=== PATIENT | male | born 1950 | race Caucasian/White ===

== ENCOUNTER 2019-02-22 05:33 | Day surgery (SDC) | payer MEDICARE ==
[2019-02-20 14:23] VITALS: BMI 28.8
[~2019-02-22 05:33] MED LIST: HEPARIN SODIUM,PORCINE 5,000 UNIT/ML 1 ML VIAL SQ ONE; Pre Op ABX Message 1 EACH MISC MISCELLANE ONE
[2019-02-22] MEDS ORDERED: NA PHOS,M-B/NA PHOS,DI-BA 133 ML ENEMA RECTAL ONE (05:49)
[2019-02-22] MEDS ORDERED: HYDROmorphone 0.5 MG/0.5 ML SYRINGE IVP PRN (05:58)
[2019-02-22] MEDS ORDERED: LACTATED RINGERS 1,000 ML IV SCH (05:58)
[2019-02-22] MEDS ORDERED: ONDANSETRON 4 MG/2 ML VIAL IVP ONE (05:58)
[2019-02-22] MEDS ORDERED: DEXAMETHASONE SOD PHOSPHATE 10 MG/ML 1 ML VIAL IV ONE (05:58)
[2019-02-22] MEDS ORDERED: SCOPOLAMINE 1.5MG/72HR PATCH TRANSDERM ONE (05:58)
[2019-02-22] MEDS ORDERED: LIDOCAINE 1% 20 ML VIAL (10MG/ML) FOR IV START INTRADERMA PRN (05:58)
[2019-02-22 06:14] VITALS: TEMP 97.8
[2019-02-22] MEDS ORDERED: LACTATED RINGERS 1,000 ML IV ONE (06:25)
[2019-02-22] MEDS ORDERED: KETAMINE 10 MG/ML 20 ML VIAL ONE (07:38)
[2019-02-22] MEDS ORDERED: KETOROLAC 30 MG/ML 1 ML VIAL ONE (07:38)
[2019-02-22] MEDS ORDERED: PROPOFOL 10 MG/ML 20 ML VIAL IV ONE (07:38)
[2019-02-22] MEDS ORDERED: MIDAZOLAM 2 MG/2 ML VIAL ONE (07:38)
[2019-02-22] MEDS ORDERED: fentaNYL (PF) 50 MCG/ML 2 ML AMP ONE (07:38)
--- NOTE | 2019-02-22 07:53 | P.GSHP ---
History of Present Illness H&P Date: 02/22/19 Chief Complaint: Internal and external hemorrhoids This is a 68-year-old male who's had issues with hemorrhoids. Patient points of anal pain and bleeding. He presents today for hemorrhoidectomy. Past Medical History Past Medical History: Cancer, Prostate Disorder Additional Past Medical History / Comment(s): BASAL CELL CANCER, CATARACT AND GLAUCOMA BILATERAL EYES History of Any Multi-Drug Resistant Organisms: None Reported Past Surgical History: Tonsillectomy Additional Past Surgical History / Comment(s): HEMORROIDECTOMY , COLONOSCOPY, SKIN LESIONS Past Anesthesia/Blood Transfusion Reactions: No Reported Reaction Smoking Status: Never smoker - Past Family History Mother Family Medical History: No Reported History Medications and Allergies Home Medications Medication Instructions Recorded Confirmed Type Doxazosin [Cardura] 2 mg PO HS 02/20/19 02/20/19 History Allergies Allergy/AdvReac Type Severity Reaction Status Date / Time lanolin Allergy Rash/Hives Verified 02/20/19 13:59 Surgical - Exam Vital Signs Temp Pulse Resp BP Pulse Ox 97.8 F 97 18 168/82 98 02/22/19 06:13 02/22/19 06:13 02/22/19 06:13 02/22/19 06:13 02/22/19 06:13 - General well developed, well nourished - Eyes PERRL - ENT normal pinna - Neck no masses - Respiratory normal expansion - Cardiovascular Rhythm: regular - Abdomen Abdomen: soft, non tender - Rectum Internal and external hemorrhoids Hemorrhoids: moderate Assessment and Plan Assessment: Hemorrhoids. We'll perform internal and external hemorrhoidectomy.
[2019-02-22] MEDS ORDERED: BUPIVACAINE (PF) 0.5% 30 ML VIAL SQ ONE (07:59)
[2019-02-22 08:16] VITALS: RESP 16
--- NOTE | 2019-02-22 08:23 | P.OP ---
Date of Procedure: 02/22/19 Preoperative Diagnosis: Internal and external hemorrhoids Postoperative Diagnosis: Internal and external hemorrhoids Procedure(s) Performed: Internal and external hemorrhoidectomy Anesthesia: PEGGY Surgeon: Carlos Chappell Estimated Blood Loss (ml): 5 Pathology: other (Internal and external hemorrhoids) Condition: stable Disposition: PACU Description of Procedure: The patient's placed on the operative table in the prone position. He received IV sedation. His anus was prepped and draped usual sterile fashion. The anus was then injected 1% local Xylocaine. After adequate local anesthetic. The hemorrhoid was performed. The anal retractors placed anus. The left lateral h emorrhoidal column was grasped. Using the Harmonic scissors the rectus performed. Next the right posterior hemorrhoidal column was grasped. This removed with the Harmonic scissors well. Hemostasis was achieved. The anus was packed with Gelfoam. Patient top she will was sent to recovery room stable condition.
[2019-02-22 08:43] VITALS: BP 165/95; PULSE 63
== END 2019-02-22 09:00 | disposition home or self-care (01) ==
LOC: OR 05:33
PROVIDERS: ATTEND Surgery
DX: K64.8 Other hemorrhoids (principal); K64.4 Residual hemorrhoidal skin tags; H40.9 Unspecified glaucoma; Z85.828 Personal history of other malignant neoplasm of skin; Z79.899 Other long term (current) drug therapy; Z88.8 Allergy status to other drugs, medicaments and biological substances
CPT/HCPCS: 88304; 46260; J2250; J1644; J1100; J2405; J3010; J1885; J2704

== ENCOUNTER → 2021-02-11 | Outpatient (CLI) | payer MEDICARE ==
--- NOTE | 2021-02-11 12:01 | ECHOF ---
Referral Reason:R01.1 murmur MEASUREMENTS -------- HEIGHT: 172.7 cm WEIGHT: 88.9 kg BP: RVIDd: 3.9 cm (< 3.3) IVSd: 1.9 cm (0.6 - 1.1) LVIDd: 3.6 cm (3.9 - 5.3) LVPWd: 1.5 cm (0.6 - 1.1) IVSs: 2.4 cm LVIDs: 1.9 cm LVPWs: 2.3 cm LAESV Index (A-L): 26.51 ml/m Ao Diam: 2.9 cm (2.0 - 3.7) AV Cusp: 1.6 cm (1.5 - 2.6) LA Diam: 3.6 cm (2.7 - 3.8) MV EXCURSION: 19.436 mm (> 18.000) MV EF SLOPE: 53 mm/s (70 - 150) EPSS: 0.1 cm MV E Haroldo: 0.61 m/s MV DecT: 232 ms MV A Haroldo: 0.89 m/s MV E/A Ratio: 0.68 AV maxP.88 mmHg AV meanP.07 mmHg RAP: 5.00 mmHg RVSP: 25.72 mmHg FINDINGS -------- Sinus rhythm. This was a technically adequate study. The left ventricular size is normal. There is severe concentric left ventricular hypertrophy. Ove rall left ventricular systolic function is normal with, an EF between 55 - 60 %. The diastolic fill ing pattern is normal for the age of the patient 11.56. The right ventricle is mild to moderately enlarged. Normal LA size by volume 22+/-6 ml/m2. The right atrium is mildly enlarged. Possible PFO The aortic valve is trileaflet and appears structurally normal. There is mild aortic valve sclerosi s. There is no evidence of aortic regurgitation. There is mild aortic stenosis present. Peak/me an gradient across the Aortic Valve is 18.88mmHg / 10.07mmHg. No mitral regurgitation. Mild tricuspid regurgitation present. There is no evidence of pulmonary hypertension. The right v entricular systolic pressure, as measured by Doppler, is 25.72mmHg. Trace/mild (physiologic) pulmonic regurgitation. The aortic root size is normal. IVC Not well visulized. There is no pericardial effusion. CONCLUSIONS -------- 1. The left ventricular size is normal. 2. There is severe concentric left ventricular hypertrophy. 3. Overall left ventricular systolic function is normal with, an EF between 55 - 60 %. 4. The right ventricle is mild to moderately enlarged. 5. The right atrium is mildly enlarged. 6. Possible PFO 7. There is mild aortic valve sclerosis. 8. There is mild aortic stenosis present. 9. Peak/mean gradient across the Aortic Valve is 18.88mmHg / 10.07mmHg. 10. Mild tricuspid regurgitation present. 11. Trace/mild (physiologic) pulmonic regurgitation. ELEMENTARY EDUCATOR: Dana Fair RDCS
== END | disposition home or self-care (01) ==
LOC: RADECHMAIN 08:11
PROVIDERS: ATTEND Family Medicine
DX: I08.8 Other rheumatic multiple valve diseases (principal)
CPT/HCPCS: 93306

== ENCOUNTER 2021-10-13 16:12 | Inpatient (IN) | payer MEDICARE ==
[2021-10-13 17:31] LABS: Basophils # (A) 0.1 k/uL (0-0.2); Basophils % (A) 1 %; Eosinophils # (A) 0.1 k/uL (0-0.7); Eosinophils % (A) 2 %; HCT 48.2 % (39.0-53.0); HGB 16.8 gm/dL (13.0-17.5); Lymphocytes # (A) 2.7 k/uL (1.0-4.8); Lymphocytes % (A) 31 %; MCH 31.7 pg (25.0-35.0); MCHC 34.9 g/dL (31.0-37.0); MCV 90.9 fL (80.0-100.0); Mean Platelet Volume 7.3; Monocytes # (A) 0.5 k/uL (0-1.0); Monocytes % (A) 6 %; Neutrophils # (A) 5.2 k/uL (1.3-7.7); Neutrophils % (A) 59 %; Platelet Count 217 k/uL (150-450); RDW 12.2 % (11.5-15.5); WBC 8.8 k/uL (3.8-10.6)
[2021-10-13 17:45] LABS: ALT 25 U/L (4-49); AST 32 U/L (17-59); African American GFR (CKD) >90 (>60 ml/min/1.73 sqM); Albumin 4.4 g/dL (3.5-5.0); Alkaline Phosphatase 76 U/L (38-126); Anion Gap 8 mmol/L; Blood Urea Nitrogen 21 mg/dL (9-20); Calcium 9.4 mg/dL (8.4-10.2); Carbon Dioxide 24 mmol/L (22-30); Chloride 107 mmol/L (98-107); Glucose 82 mg/dL (74-99); Magnesium 2.1 mg/dL (1.6-2.3); Non-African American GFR(CKD) 84 (>60 ml/min/1.73 sqM); Potassium 3.6 mmol/L (3.5-5.1); Sodium 139 mmol/L (137-145); Total Bilirubin 0.7 mg/dL (0.2-1.3); Total Protein 7.5 g/dL (6.3-8.2)
--- NOTE | 2021-10-13 17:45 | ED ---
General Adult HPI - General Chief complaint: Arrhythmia/Palpitations Stated complaint: Irregular heartbeat,Sent from PCP Time Seen by Provider: 10/13/21 16:45 Source: patient, RN notes reviewed, old records reviewed Mode of arrival: ambulatory Limitations: no limitations - History of Present Illness Initial comments: This is a 71-year-old male who presents emergency Department stating for the last couple of days she'sbeen somewhat short of breath particularly when he exercises. Patient denies any chest pain or palpitations. Patient denies any back pain. Patient denies any recent fever chills or cough. Patient denies any swelling to her legs patient denies any calf tenderness. Patient denies any abdominal pain. Patient denies any lightheadedness dizziness or nursing about so. Patient denies headache patient denies numbness weakness. Patient denies any abdominal pain. - Related Data Home Medications Medication Instructions Recorded Confirmed Doxazosin [Cardura] 4 mg PO HS 02/20/19 10/13/21 Allergies Allergy/AdvReac Type Severity Reaction Status Date / Time lanolin Allergy Rash/Hives Verified 10/13/21 18:06 Review of Systems ROS Statement: Those systems with pertinent positive or pertinent negative responses have been documented in the HPI. ROS Other: All systems not noted in ROS Statement are negative. Past Medical History Past Medical History: Cancer, Prostate Disorder Additional Past Medical History / Comment(s): BASAL CELL CANCER, CATARACT AND GLAUCOMA BILATERAL EYES History of Any Multi-Drug Resistant Organisms: None Reported Past Surgical History: Tonsillectomy Additional Past Surgical History / Comment(s): HEMORROIDECTOMY , COLONOSCOPY, SKIN LESIONS Past Anesthesia/Blood Transfusion Reactions: No Reported Reaction Past Psychological History: No Psychological Hx Reported Past Alcohol Use History: Rare Past Drug Use History: None Reported - Past Family History Mother Family Medical History: No Reported History General Exam - General Exam Comments Initial Comments: GENERAL: Patient is well-developed and well-nourished. Patient is nontoxic and well- hydrated and is in no acute distress. ENT: Neck is soft and supple. No significant lymphadenopathy is noted. Oropharynx is clear. Moist mucous membranes. Neck has full range of motion without eliciting any pain. EYES: The sclera were anicteric and conjunctiva were pink and moist. Extraocular movements were intact and pupils were equal round and reactive to light. Eyelids were unremarkable. PULMONARY: Unlabored respirations. Good breath sounds bilaterally. No audible rales rhonchi or wheezing was noted. CARDIOVASCULAR: This is a regular rate with occasional extrasystole ABDOMEN: Soft and nontender with normal bowel sounds. SKIN: Skin is clear with no lesions or rashes and otherwise unremarkable. NEUROLOGIC: Patient is alert and oriented x3. Cranial nerves II through XII are grossly intact. Motor and sensory are also intact. Normal speech, volume and content. Symmetrical smile. MUSCULOSKELETAL: Normal extremities with adequate strength and full range of motion. LYMPHATICS: No significant lymphadenopathy is noted PSYCHIATRIC: Normal psychiatric evaluation. Limitations: no limitations Course Vital Signs 10/13/21 10/13/21 10/13/21 16:42 17:30 18:00 Pulse Rate 70 78 84 Respiratory 20 20 18 Rate Blood Pressure 213/115 187/111 198/130 O2 Sat by Pulse 98 98 100 Oximetry 10/13/21 10/13/21 10/13/21 18:30 19:30 20:00 Pulse Rate 72 82 125 H Respiratory 20 18 18 Rate Blood Pressure 219/158 153/119 168/99 O2 Sat by Pulse 98 98 98 Oximetry Medical Decision Making - Medical Decision Making EKG shows atrial flutter and irregular conduction is 76 bpm QRS is 109 QT interval 370 QTC is 400. Patient's EKG shows no ST segment elevation. Chest x-ray showed no acute abnormality. CT to rule out PE showed no pulmonary embolus. Per I started the patient on heparin. I spoke with Dr. Kerr he agreed to admit the patient admitted the patient wrote admitting orders. New. Patient also was given hydralazine for high blood pressure. Patient became tachycardic so started the patient on Cardizem after giving him a 5 mg Cardizem bolus. - Lab Data Result diagrams: 10/13/21 17:24 10/13/21 17:24 Lab Results 10/13/21 10/13/21 10/13/21 Range/Units 17:24 17:24 17:24 WBC 8.8 (3.8-10.6) k/uL RBC 5.30 (4.30-5.90) m/uL Hgb 16.8 (13.0-17.5) gm/dL Hct 48.2 (39.0-53.0) % MCV 90.9 (80.0-100.0) fL MCH 31.7 (25.0-35.0) pg MCHC 34.9 (31.0-37.0) g/dL RDW 12.2 (11.5-15.5) % Plt Count 217 (150-450) k/uL MPV 7.3 Neutrophils % 59 % Lymphocytes % 31 % Monocytes % 6 % Eosinophils % 2 % Basophils % 1 % Neutrophils # 5.2 (1.3-7.7) k/uL Lymphocytes # 2.7 (1.0-4.8) k/uL Monocytes # 0.5 (0-1.0) k/uL Eosinophils # 0.1 (0-0.7) k/uL Basophils # 0.1 (0-0.2) k/uL PT 10.1 (9.0-12.0) sec INR 0.9 (<1.2) APTT 26.2 (22.0-30.0) sec D-Dimer 0.73 H (<0.60) mg/L FEU Sodium 139 (137-145) mmol/L Potassium 3.6 (3.5-5.1) mmol/L Chloride 107 (98-107) mmol/L Carbon Dioxide 24 (22-30) mmol/L Anion Gap 8 mmol/L BUN 21 H (9-20) mg/dL Creatinine 0.93 (0.66-1.25) mg/dL Est GFR (CKD-EPI)AfAm >90 (>60 ml/min/1.73 sqM) Est GFR (CKD-EPI)NonAf 84 (>60 ml/min/1.73 sqM) Glucose 82 (74-99) mg/dL Calcium 9.4 (8.4-10.2) mg/dL Magnesium 2.1 (1.6-2.3) mg/dL Total Bilirubin 0.7 (0.2-1.3) mg/dL AST 32 (17-59) U/L ALT 25 (4-49) U/L Alkaline Phosphatase 76 (38-126) U/L Troponin I (0.000-0.034) ng/mL NT-Pro-B Natriuret Pep pg/mL Total Protein 7.5 (6.3-8.2) g/dL Albumin 4.4 (3.5-5.0) g/dL 10/13/21 10/13/21 Range/Units 17:24 17:41 WBC (3.8-10.6) k/uL RBC (4.30-5.90) m/uL Hgb (13.0-17.5) gm/dL Hct (39.0-53.0) % MCV (80.0-100.0) fL MCH (25.0-35.0) pg MCHC (31.0-37.0) g/dL RDW (11.5-15.5) % Plt Count (150-450) k/uL MPV Neutrophils % % Lymphocytes % % Monocytes % % Eosinophils % % Basophils % % Neutrophils # (1.3-7.7) k/uL Lymphocytes # (1.0-4.8) k/uL Monocytes # (0-1.0) k/uL Eosinophils # (0-0.7) k/uL Basophils # (0-0.2) k/uL PT (9.0-12.0) sec INR (<1.2) APTT (22.0-30.0) sec D-Dimer (<0.60) mg/L FEU Sodium (137-145) mmol/L Potassium (3.5-5.1) mmol/L Chloride (98-107) mmol/L Carbon Dioxide (22-30) mmol/L Anion Gap mmol/L BUN (9-20) mg/dL Creatinine (0.66-1.25) mg/dL Est GFR (CKD-EPI)AfAm (>60 ml/min/1.73 sqM) Est GFR (CKD-EPI)NonAf (>60 ml/min/1.73 sqM) Glucose (74-99) mg/dL Calcium (8.4-10.2) mg/dL Magnesium (1.6-2.3) mg/dL Total Bilirubin (0.2-1.3) mg/dL AST (17-59) U/L ALT (4-49) U/L Alkaline Phosphatase (38-126) U/L Troponin I <0.012 (0.000-0.034) ng/mL NT-Pro-B Natriuret Pep 301 pg/mL Total Protein (6.3-8.2) g/dL Albumin (3.5-5.0) g/dL Critical Care Time Critical Care Time: Yes Total Critical Care Time: 35 Disposition Clinical Impression: New onset atrial flutter, Hypertensive urgency Disposition: ADMITTED IP TO THIS HOSP Time of Disposition: 19:50
[2021-10-13] MEDS ORDERED: HEPARIN SODIUM 1,000 UN/ML (10ML VL) IV ONE (17:50)
[2021-10-13] MEDS ORDERED: HEPARIN SOD,PORK IN 0.45% NACL 25,000 UNIT in 0.45% NACL 1 250ML.BAG IV SCH (18:00)
--- NOTE | 2021-10-13 18:00 | XR ---
EXAMINATION TYPE: XR chest 2V DATE OF EXAM: 10/13/2021 COMPARISON: NONE HISTORY: Pain/dysrhythmia TECHNIQUE: Frontal and lateral views of the chest are obtained. FINDINGS: There is no focal air space opacity, pleural effusion, or pneumothorax seen. The cardiac silhouette size is within normal limits. The osseous structures are intact. IMPRESSION: No acute cardiopulmonary process.
[2021-10-13 18:05] LABS: INR 0.9 (<1.2); Partial Thromboplastin Time 26.2 sec (22.0-30.0); Prothrombin Time 10.1 sec (9.0-12.0)
[2021-10-13] MEDS ORDERED: hydrALAZINE HCL 20 MG/ML 1 ML VIAL IVP STA (18:32)
--- NOTE | 2021-10-13 19:16 | CT ---
EXAMINATION TYPE: CT chest angio for PE DATE OF EXAM: 10/13/2021 COMPARISON: Same-day radiograph HISTORY: New onset a-fib, hypertension and elevated d-dimer. CT DLP: 355.9 mGycm Automated exposure control for dose reduction was used. CONTRAST: CT Chest for pulmonary embolism performed with with IV Contrast, patient injected with 100 mL of Isov ue 370. FINDINGS: LUNGS: The lungs are grossly clear, there is no concerning parenchymal mass or nodule identified. T here is no pleural effusion or pneumothorax seen. The tracheobronchial tree is patent. MEDIASTINUM: There is satisfactory enhancement of the pulmonary artery and its branches, there is no CT evidence for pulmonary embolism. There are no greater than 1 cm hilar or mediastinal lymph nodes. No pericardial effusion is seen. OTHER: Diffuse hepatic steatosis. Scattered multiple low attenuating hepatic foci compatible with cy sts measuring up to 2.3 cm. No additional significant abnormality is seen. IMPRESSION: No acute PE or cardiopulmonary abnormality. Hepatic steatosis and cysts.
[2021-10-13] MEDS ORDERED: NITROGLYCERIN SL TABS 0.4 MG TAB SUBLINGUAL PRN (19:50)
[2021-10-13] MEDS ORDERED: LORazepam 2 MG/ML INJ IV STA (20:19)
[2021-10-13] MEDS ORDERED: DILTIAZEM 125 MG in SODIUM CHLORIDE 0.9% 100 ML IV SCH (20:45)
[2021-10-13] MEDS ORDERED: DILTIAZEM DRIP BOLUS FROM BAG 1 MG SOLN IV ONE (20:45)
[2021-10-14] MEDS ORDERED: HEPARIN SODIUM 1,000 UN/ML (10ML VL) IV PRN (05:26)
[2021-10-14 08:59] LABS: Chol/HDL Ratio 5.35 Ratio; LDL Cholesterol,Calculated 109.8 mg/dL (0.0-131.0)
[2021-10-14] MEDS ORDERED: ASPIRIN 325 MG TAB PO SCH (09:00)
--- NOTE | 2021-10-14 09:55 | P.PN ---
Subjective Patient appears comfortable at rest this morning remains in atrial flutter with controlled ventricular rate. His cardiac enzymes are negative BNP is normal d- dimer was slightly elevated went on to have a computed tomography scan of the chest that is negative for pulmonary embolism. The plan at this stage is to obtain a 2-D echo to assess his LV function and wall motion if these are normal then I will switch him to liquids is around 2 controlled his blood pressure better with losartan and discharge him home consider cardioversion in 3 weeks t ciara. There is LV dysfunction I will consider cardiac catheterization on this admission and then proceed with cardioversion [address] Patient had a mildly enlarged right ventricle and a prior echocardiogram will be performing a transesophageal echo prior to cardioversion that should give us further information On exam today patient is comfortable at rest vital signs are stable as is her regular abdomen is soft exam extremities did not reveal any edema per for pulses are felt [employer] exam did not reveal focal neurological deficits Labs have been reviewed computed tomography scan of the chest has been reviewed Assessment and plan: New onset typical atrial flutter Hypertensive heart disease I will obtain a 2-D echo and make further plans based on Objective - Vital Signs Vital signs: Vital Signs Temp Pulse 92 10/14/21 07:11 Resp 18 10/14/21 07:11 BP 142/98 10/14/21 07:11 Pulse Ox 96 10/14/21 07:11 Intake & Output 10/13/21 10/14/21 10/14/21 18:59 06:59 18:59 Intake Total 95.619 Balance 95.619 Weight 88.451 kg Intake: Intake, IV Titration 95.619 Amount Heparin Sod,Pork in 0.45% 95.619 NaCl 25,000 unit In 0.45 % NaCl 1 250ml.bag @ 11.3 UNITS/KG/HR 9.995 mls/hr IV .Q24H [facility] Rx#: [id number] - Labs CBC & Chem 7: 10/13/21 17:24 10/13/21 17:24 Labs: Abnormal Lab Results - Last 24 Hours (Table) 10/13/21 10/13/21 10/14/21 Range/Units 17:24 17:24 03:48 APTT (22.0-30.0) sec D-Dimer 0.73 H (<0.60) mg/L FEU BUN 21 H (9-20) mg/dL HDL Cholesterol 31.80 L (40.00-60.00) mg/dL 10/14/21 Range/Units 03:48 APTT 32.5 H (22.0-30.0) sec D-Dimer (<0.60) mg/L FEU BUN (9-20) mg/dL HDL Cholesterol (40.00-60.00) mg/dL
[2021-10-14] MEDS: LOSARTAN 50 MG TAB PO SCH (10:27)
--- NOTE | 2021-10-14 10:48 | ECHOF ---
Referral Reason:afib MEASUREMENTS -------- HEIGHT: 170.2 cm WEIGHT: 0.0 kg BP: 148/101 RVIDd: 3.5 cm (< 3.3) IVSd: 1.9 cm (0.6 - 1.1) LVIDd: 3.6 cm (3.9 - 5.3) LVPWd: 1.7 cm (0.6 - 1.1) IVSs: 2.3 cm LVIDs: 2.0 cm LVPWs: 2.4 cm Ao Diam: 2.7 cm (2.0 - 3.7) AV Cusp: 1.6 cm (1.5 - 2.6) LA Diam: 4.2 cm (2.7 - 3.8) MV EXCURSION: 21.333 mm (> 18.000) MV EF SLOPE: 72 mm/s (70 - 150) EPSS: 0.2 cm RAP: 5.00 mmHg RVSP: 32.81 mmHg FINDINGS -------- The rhythm appears to be atrial flutter. This was a technically adequate study. The left ventricular size is normal. There is severe concentric left ventricular hypertrophy. Ove rall left ventricular systolic function is normal with, an EF between 55 - 60 %. The right ventricle is mildly enlarged. The left atrium is markedly dilated. The right atrium is mildly enlarged. Interatrial and interventricular septum intact. There is no evidence of aortic regurgitation. There is no evidence of aortic stenosis. [id number] mitral regurgitation is present. Mild tricuspid regurgitation present. There is no evidence of pulmonary hypertension. The right v entricular systolic pressure, as measured by Doppler, is 32.81mmHg. There is no pulmonic regurgitation present. The aortic root size is normal. IVC Not well visulized. Echo free space represents a pericardial fat pad. There is no pericardial effusion. CONCLUSIONS -------- 1. The rhythm appears to be atrial flutter. 2. The left ventricular size is normal. 3. There is severe concentric left ventricular hypertrophy. 4. Overall left ventricular systolic function is normal with, an EF between 55 - 60 %. 5. The right ventricle is mildly enlarged. 6. The left atrium is markedly dilated. 7. The right atrium is mildly enlarged. 8. [id number] mitral regurgitation is present. 9. Mild tricuspid regurgitation present. LEGAL RECRUITER: Dana Fair RDCS
--- NOTE | 2021-10-14 11:12 | CONS ---
CONSULTATION DATE OF CONSULTATION: 10/13/2021 Karlo is a 71-year-old gentleman with history of hypertension who presented to his primary care physician yesterday complaining of fatigue and shortness of breath. He had an EKG in their office that revealed atrial flutter. I was called and I advised the patient to come to the emergency room for further evaluation. This is new-onset atrial flutter. I evaluated the patient in the ER while he was waiting to be admitted. Patient's blood pressure was elevated, but he was otherwise free of significant symptoms at rest. He was found to be in atrial flutter. Patient has a history of hypertensive heart disease and had mildly dilated right ventricle on an echocardiogram about 9 months ago. He suffered from an episode of coronavirus infection with delta virus in March and subsequently had another bout of coronavirus in August, probably from the omicron variant. He did not require hospitalization, but he lost his taste and smell the first time and lost weight as a result. Patient is fairly active physically and regularly exercises at the [facility]. He uses an elliptical machine and goes for about 3 to 4 miles without any problems. The first time he noticed a change in his exercise tolerance was about a week ago. His symptoms gradually got worse and he went to the primary care physician and subsequently is being admitted to hospital. I am going to start the patient on IV heparin, control his blood pressure and repeat an echocardiogram. His EKG shows poor R-wave progression suggestive of prior anteroseptal myocardial infarction. I will obtain cardiac enzymes. We will obtain a 2D echo on him tomorrow, and if he does not have any LV systolic dysfunction or new wall motion abnormalities, I will anticoagulate him for 3 weeks and perform MARIO and cardioversion. If he has new wall motion abnormalities or new LV dysfunction, then he will undergo cardiac catheterization and then we will anticoagulate and cardiovert him. His symptoms are at least a week old. It appears as if the atrial flutter is at least a week old, if not more. Hence it is prudent to anticoagulate him for 3 weeks before we consider cardioversion on him. PAST MEDICAL HISTORY: Significant for hypertension. MEDICATIONS: Medications at home included Cardura 4 mg daily. ALLERGIES: There are NO KNOWN DRUG ALLERGIES. FAMILY HISTORY: Negative for premature coronary artery disease. SOCIAL HISTORY: He denies smoking, ETOH abuse or drug abuse. REVIEW OF SYSTEMS: HEENT is unremarkable. CARDIAC: As described above. RESPIRATORY: As described above. GI: Negative. GENITOURINARY: Negative. ALLERGY/IMMUNOLOGY: Negative. SKIN: Negative. MUSCULOSKELETAL: Negative. ENDOCRINE: Negative. RHEUMATOLOGICAL: Negative. DERMATOLOGY: Negative. CONSTITUTIONAL: Negative. ONCOLOGICAL: Negative. CENTRAL NERVOUS SYSTEM: Negative. PHYSICAL EXAMINATION: Patient was comfortable at rest. Heart rate was 70 beats per minute. Blood pressure initially was 213/115 and has gradually come down to 150s over 90s. There is no jugular venous distention. Carotid upstroke is normal. There is no bruit. Chest exam reveals good air entry bilaterally. Heart exam reveals first and second heart sounds, irregular rhythm. No murmur. Abdomen is soft. Examination of extremities did not reveal any edema. Peripheral pulses are felt. LABS: Labs were pending at the time of my evaluation. ASSESSMENT: 1. New-onset atrial flutter that is typical. 2. Hypertensive heart disease with severe uncontrolled hypertension. PLAN: Will start the patient on IV heparin, control his blood pressure, obtain cardiac enzymes and decide on further course of action. MMODL / IJN: [id number] /
--- NOTE | 2021-10-14 11:28 | P.HPIM ---
History of Present Illness H&P Date: 10/14/21 Chief Complaint: SOB, A Flutter HISTORY OF PRESENT ILLNESS 71-year-old male one of Dr. Rubin patient seen Michelle Franco nurse practitioner with past medical history of BPH and skin cancer who is healthy otherwise doing well the blood to have slight shortness of breath with minimum exertion on and off for the last few weeks become much worse last few days problem become aggravated with slight heaviness and tightness in the chest ended up coming to the emergency department at [facility] late in the evening on 10/13/2021 where was seen and evaluated he found to be in a flutter at the time, his lab value with normal CBC CMP PT/INR his d-dimer was mildly elevated CTA was negative for PE EKG showed significant a flutter at a time, chest x-ray was negative. Patient was started on Cardizem drip and heparin drip admitted to the hospital cardiology consult was requested. REVIEW OF SYSTEMS Constitutional: No fever, no chills, no night sweats. No weight change. No weakness, fatigue or lethargy. No daytime sleepiness. EENT: No headache. No blurred vision or double vision, no loss of vision. No loss of Hearing, no ringing in the ears, no dizziness. No nasal drainage or congestion. No epistaxis. No sore throat. Lungs: Mild shortness of breath with minimal exertion but no cough, no sputum production. No wheezing. Cardiovascular: Positive chest tightness with fluttering and arrhythmia. no lower extremity edema. No palpitations. No paroxysmal nocturnal dyspnea. No orthopnea. No lightheadedness or dizziness. No syncopal episodes. Abdominal: No abdominal pain. No nausea, vomiting. No diarrhea. No constipation. No bloody or tarry stools.. No loss of appetite. Genitourinary: No dysuria, increased frequency, urgency. No urinary retention. Musculoskeletal: No myalgias. No muscle weakness, no gait dysfunction, no frequent falls. No back pain. No neck pain. Integumentary: No wounds, no lesions. No rash or pruritus. No unusual bruising. No change in hair or nails. Neurologic: No aphasia. No facial droop. No change in mentation. No head injury. No headache. No paralysis. No paresthesia. Psychiatric: No depression. No anxiety. No mood swings. Endocrine: No abnormal blood sugars. No weight change. No excessive sweating or thirst. No cold intolerance. SOCIAL HISTORY He does not smoke, no alcohol abuse, no drug use, is a retired IT part-time job only. FAMILY HISTORY Patient has 6 children are all living and well, 3 siblings with no major medical problems, his mother age 99 from old age, his father at 88 from Alzheimer dementia. PHYSICAL EXAMINATION Gen: This is well-developed does not been in respiratory distress. HEENT: Head is atraumatic, normocephalic. Pupils equal, round. Sclerae is anicteric. NECK: Supple. No JVD. No lymphadenopathy. No thyromegaly. LUNGS: Clear to auscultation. No wheezes or rhonchi. No intercostal retractions. HEART: Irregular rate and rhythm. S1, S2 no S3 with positive systolic murmur in the apex. ABDOMEN: Soft. Bowel sounds are present. No masses. No tenderness. EXTREMITIES: No pedal edema. No calf tenderness. NEUROLOGICAL: Patient is awake, alert and oriented x3. Cranial nerves 2 through 12 are grossly intact. ASSESSMENT AND PLAN 1. Significant dyspnea and shortness of breath: Most likely caused by a flutter no sign of anginal chest pain at this point, patient be seen cardiology echocardiogram will be done continue current management for a flutter this time further intervention depending on cardiology consultation. 2 a flutter: New onset with no Underline problem so far, apparently patient is seen cardiology Dr. Robles in the past for? Of heart mass and came back completely negative but was told her that time he had mild valvular heart disease. Continue Cardizem drip and patient be started on anticoagulation at this time. 3 valvular heart disease: Mitral regurgitation, still very mild continue medical management. 4 hypertension: Blood pressure has been mildly elevated patient was started on losartan also he is on doxazosin 4 mg a day continue both medication we will add smaller dose of beta fausto like metoprolol succinate 12.5 mg at bedtime. 5 ?? Hypothyroidism: TSH and free T4 was requested with lap. 6 BPH: Has been on alpha fausto with Alhaji as a seen for milligrams a day. 7 GI prophylaxis: Patient be on Pepcid. 8 DVT prophylaxis: Patient will be on anticoagulation. CODE STATUS: Full code. Patient will be admitted to the hospital for overnight stay. Past Medical History Past Medical History: Cancer, Prostate Disorder Additional Past Medical History / Comment(s): BASAL CELL CANCER, CATARACT AND GLAUCOMA BILATERAL EYES History of Any Multi-Drug Resistant Organisms: None Reported Past Surgical History: Tonsillectomy Additional Past Surgical History / Comment(s): HEMORROIDECTOMY , COLONOSCOPY, SKIN LESIONS Past Anesthesia/Blood Transfusion Reactions: No Reported Reaction Past Psychological History: No Psychological Hx Reported Past Alcohol Use History: Rare Past Drug Use History: None Reported - Past Family History Mother Family Medical History: No Reported History Medications and Allergies Home Medications Medication Instructions Recorded Confirmed Type Doxazosin [Cardura] 4 mg PO HS 02/20/19 10/13/21 History Apixaban [Eliquis] 5 mg PO BID 30 Days #60 tab 10/14/21 Rx Allergies Allergy/AdvReac Type Severity Reaction Status Date / Time lanolin Allergy Rash/Hives Verified 10/13/21 18:06 Physical Exam Vitals: Vital Signs Pulse Resp BP Pulse Ox 10/14/21 07:11 92 18 142/98 96 10/14/21 04:00 84 18 123/94 96 10/14/21 03:00 80 16 132/91 95 10/14/21 02:30 80 16 132/91 94 L 10/14/21 02:20 77 17 132/91 96 10/14/21 02:10 84 16 132/91 96 10/14/21 02:00 80 17 131/86 94 L 10/14/21 01:50 78 16 131/86 94 L 10/14/21 01:40 82 14 131/86 94 L 10/14/21 01:30 73 15 131/86 96 10/14/21 01:20 74 14 131/86 96 10/14/21 01:10 98 15 131/86 96 10/14/21 01:00 72 19 10/14/21 00:30 82 19 138/97 95 10/14/21 00:00 88 16 138/101 94 L 10/13/21 23:40 84 25 H 138/101 10/13/21 23:30 91 14 10/13/21 23:20 123 H 25 H 120/94 10/13/21 23:10 85 19 119/79 10/13/21 23:00 91 17 120/72 10/13/21 22:50 90 20 120/72 10/13/21 22:48 105 H 16 120/72 10/13/21 22:40 100 16 115/75 96 10/13/21 22:30 85 17 124/81 96 10/13/21 22:10 86 24 130/86 95 10/13/21 22:00 88 18 137/89 95 10/13/21 21:40 89 16 137/87 96 10/13/21 21:30 90 16 126/90 96 10/13/21 21:20 86 16 142/86 95 10/13/21 21:10 113 H 16 145/96 95 10/13/21 20:50 112 H 16 154/108 98 10/13/21 20:40 128 H 16 156/107 99 10/13/21 20:00 125 H 18 168/99 98 10/13/21 19:30 82 18 153/119 98 10/13/21 18:30 72 20 219/158 98 10/13/21 18:00 84 18 198/130 100 10/13/21 17:30 78 20 187/111 98 10/13/21 16:42 70 20 213/115 98 Intake and Output 10/13/21 10/14/21 10/14/21 22:59 06:59 14:59 Intake Total 95.619 Balance 95.619 Intake: Intake, IV Titration 95.619 Amount Heparin Sod,Pork in 0.45% 95.619 NaCl 25,000 unit In 0.45 % NaCl 1 250ml.bag @ 11.3 UNITS/KG/HR 9.995 mls/hr IV .Q24H [facility] Rx#: [id number] Other: Weight 88.451 kg Results CBC & Chem 7: 10/13/21 17:24 10/13/21 17:24 Labs: Abnormal Lab Results - Last 24 Hours (Table) 10/13/21 10/13/21 10/14/21 Range/Units 17:24 17:24 03:48 APTT (22.0-30.0) sec D-Dimer 0.73 H (<0.60) mg/L FEU BUN 21 H (9-20) mg/dL HDL Cholesterol 31.80 L (40.00-60.00) mg/dL 10/14/21 Range/Units 03:48 APTT 32.5 H (22.0-30.0) sec D-Dimer (<0.60) mg/L FEU BUN (9-20) mg/dL HDL Cholesterol (40.00-60.00) mg/dL
[2021-10-14] MEDS ORDERED: RIVAROXABAN 20 MG TAB PO SCH (13:00)
[2021-10-14] MEDS ORDERED: DOXAZOSIN 4 MG TAB PO SCH (21:00)
[2021-10-14] MEDS ORDERED: METOPROLOL SUCCINATE (ER) 25 MG TAB.ER.24H PO ONE (21:00)
[2021-10-15 08:29] VITALS: TEMP 97.6
--- NOTE | 2021-10-15 08:33 | P.PN ---
Subjective 71-year-old gentleman is admitted to hospital with new onset atrial flutter. This morning he remains in atrial flutter with controlled ventricular rate. Her pressures are better controlled. An echocardiogram I performed he has normal LV systolic function and wall motion. The plan at this stage is to discharge him home on losartan 50 mg daily continue the Cardura that he is on, and xarelto. . After he is anticoagulated for 3 weeks and will bring him back and perform MARIO cardioversion on him. His right ventricle appears mildly enlarged and this needs to be investigated further as to be related to hypertensive heart disease but we certainly have to rule out shunting across interatrial septum. On exam this morning he is comfortable at rest heart rate is 78 bpm blood pressure is 146/85 respirators 18 O2 sat is 96% on room and there is a jugular venous distention carotid upstroke is normal there is no bruit chest exam reveals good air entry bilaterally heart exam reveals first and second heart sounds are regular rhythm no murmur abdomen is soft exam extremities did not reveal any edema per for pulses are felt Assessment and plan: Typical atrial flutter with controlled ventricular rate Hypertensive heart disease Blood pressure is better controlled. I will continue to adjust the losartan dose as outpatient. He will be discharged home on losartan Cardura and the anticoagulant MARIO cardioversion in 3 weeks Objective - Vital Signs Vital signs: Vital Signs Temp 98.0 F 10/15/21 04:00 Pulse 76 10/15/21 04:00 Resp 18 10/15/21 04:00 BP 148/86 10/15/21 04:00 Pulse Ox 96 10/15/21 04:00 Intake & Output 10/14/21 10/15/21 10/15/21 18:59 06:59 18:59 Intake Total 10 Balance 10 Weight 88.451 kg Intake: IV 10 Invasive Line 1 10 Other: Voiding Method Toilet # Voids 1 - Labs CBC & Chem 7: 10/13/21 17:24 10/13/21 17:24 Labs: Abnormal Lab Results - Last 24 Hours (Table) 10/14/21 10/14/21 Range/Units 03:48 11:54 APTT 60.6 H (22.0-30.0) sec HDL Cholesterol 31.80 L (40.00-60.00) mg/dL
[2021-10-15] MEDS: LOSARTAN 50 MG TAB PO SCH (09:00)
--- NOTE | 2021-10-15 12:05 | P.PN ---
Subjective Progress Note Date: 10/15/21 HISTORY OF PRESENT ILLNESS 71-year-old male one of Dr. Rubin patient seen Michelle Franco nurse practitioner with past medical history of BPH and skin cancer who is healthy otherwise doing well the blood to have slight shortness of breath with minimum exertion on and off for the last few weeks become much worse last few days problem become aggravated with slight heaviness and tightness in the chest ended up coming to the emergency department at [facility] late in the evening on 10/13/2021 where was seen and evaluated he found to be in a flutter at the time, his lab value with normal CBC CMP PT/INR his d-dimer was mildly elevated CTA was negative for PE EKG showed significant a flutter at a time, chest x-ray was negative. Patient was started on Cardizem drip and heparin drip admitted to the hospital cardiology consult was requested. 10/15: Patient is doing much better today was seen and evaluated by cardiology apparently his metoprolol extended-release was suspended last night, his blood pressure still mildly elevated we will titrate his losartan up to 100 mg daily. Patient a flutter improved significantly pulse rate is running between 80-105. The plan with cardiology to the patient go home continue anticoagulation with Xarelto 20 mg a day he will be back in 2 weeks to do transesophageal echocardiogram and cardioversion at the time and eventually probably patient would benefit from seen electrophysiology. REVIEW OF SYSTEMS Constitutional: No fever, no chills, no night sweats. No weight change. No weakness, fatigue or lethargy. No daytime sleepiness. EENT: No headache. No blurred vision or double vision, no loss of vision. No loss of Hearing, no ringing in the ears, no dizziness. No nasal drainage or congestion. No epistaxis. No sore throat. Lungs: Mild shortness of breath with minimal exertion but no cough, no sputum production. No wheezing. Cardiovascular: Positive chest tightness with fluttering and arrhythmia. no lower extremity edema. No palpitations. No paroxysmal nocturnal dyspnea. No o rthopnea. No lightheadedness or dizziness. No syncopal episodes. Abdominal: No abdominal pain. No nausea, vomiting. No diarrhea. No constipation. No bloody or tarry stools.. No loss of appetite. Genitourinary: No dysuria, increased frequency, urgency. No urinary retention. Musculoskeletal: No myalgias. No muscle weakness, no gait dysfunction, no frequent falls. No back pain. No neck pain. Integumentary: No wounds, no lesions. No rash or pruritus. No unusual bruising. No change in hair or nails. Neurologic: No aphasia. No facial droop. No change in mentation. No head injury. No headache. No paralysis. No paresthesia. Psychiatric: No depression. No anxiety. No mood swings. Endocrine: No abnormal blood sugars. No weight change. No excessive sweating or thirst. No cold intolerance. PHYSICAL EXAMINATION Gen: This is well-developed does not been in respiratory distress. HEENT: Head is atraumatic, normocephalic. Pupils equal, round. Sclerae is anicteric. NECK: Supple. No JVD. No lymphadenopathy. No thyromegaly. LUNGS: Clear to auscultation. No wheezes or rhonchi. No intercostal retractions. HEART: Irregular rate and rhythm. S1, S2 no S3 with positive systolic murmur in the apex. ABDOMEN: Soft. Bowel sounds are present. No masses. No tenderness. EXTREMITIES: No pedal edema. No calf tenderness. NEUROLOGICAL: Patient is awake, alert and oriented x3. Cranial nerves 2 through 12 are grossly intact. ASSESSMENT AND PLAN 1. Significant dyspnea and shortness of breath: Candidate for a flutter and arrhythmia, much better today with pulse rates under control. 2 a flutter: Continue onset of his pulse rates under control today, patient was taking off Cardizem and beta fausto. Anticoagulation was started yesterday will continue Xarelto 20 mg daily. Patient be discharged home today to follow- up with cardiology and come back for transesophageal echocardiogram and cardioversion probably in 3 weeks. 3 valvular heart disease: Mitral regurgitation, still very mild continue medical management. 4 hypertension: Blood pressure still not well-controlled with titrate losartan up to 100 mg a day and keep patient on doxazosin 4 mg daily. 5 ?? Hypothyroidism: TSH and free T4 was requested with lap. 6 BPH: Has been on alpha fausto with Alhaji as a seen for milligrams a day. 7 GI prophylaxis: Patient be on Pepcid. 8 DVT prophylaxis: Patient will be on anticoagulation. CODE STATUS: Full code. Planning: Patient is doing well will be discharged home today. Objective - Vital Signs Vital signs: Vital Signs Temp 97.6 F 10/15/21 08:26 Pulse 72 10/15/21 08:26 Resp 18 10/15/21 08:26 BP 146/85 10/15/21 08:26 Pulse Ox 96 10/15/21 08:26 Intake & Output 10/14/21 10/15/21 10/15/21 18:59 06:59 18:59 Intake Total 10 Balance 10 Weight 88.451 kg Intake: IV 10 Invasive Line 1 10 Other: Voiding Method Toilet # Voids 1 - Labs CBC & Chem 7: 10/13/21 17:24 10/13/21 17:24 Labs: Abnormal Lab Results - Last 24 Hours (Table) 10/14/21 Range/Units 11:54 APTT 60.6 H (22.0-30.0) sec
[2021-10-15 12:09] VITALS: BP 144/89; PULSE 70; RESP 15
--- NOTE | 2021-10-15 12:10 | P.DS ---
Providers Date of admission: 10/13/21 19:51 Attending physician: Alexander Kerr Consults: 10/13/21 19:51 Consult Physician Urgent Consulting Provider: [facility] Consult Reason/Comments: New-onset atrial flutter Do you want consulting provider notified?: Yes Primary care physician: Andrew Rubin [place] [facility] Course: HISTORY OF PRESENT ILLNESS 71-year-old male one of Dr. Rubin patient seen Michelle Franco nurse practitioner with past medical history of BPH and skin cancer who is healthy otherwise doing well the blood to have slight shortness of breath with minimum exertion on and off for the last few weeks become much worse last few days problem become aggravated with slight heaviness and tightness in the chest ended up coming to the emergency department at [facility] late in the evening on 10/13/2021 where was seen and evaluated he found to be in a flutter at the time, his lab value with normal CBC CMP PT/INR his d-dimer was mildly elevated CTA was negative for PE EKG showed significant a flutter at a time, chest x-ray was negative. Patient was started on Cardizem drip and heparin drip admitted to the hospital cardiology consult was requested. 10/15: Patient is doing much better today was seen and evaluated by cardiology apparently his metoprolol extended-release was suspended last night, his blood pressure still mildly elevated we will titrate his losartan up to 100 mg daily. Patient a flutter improved significantly pulse rate is running between 80-105. The plan with cardiology to the patient go home continue anticoagulation with Xarelto 20 mg a day he will be back in 2 weeks to do transesophageal echocardiogram and cardioversion at the time and eventually probably patient would benefit from seen electrophysiology. REVIEW OF SYSTEMS Constitutional: No fever, no chills, no night sweats. No weight change. No weakness, fatigue or lethargy. No daytime sleepiness. EENT: No headache. No blurred vision or double vision, no loss of vision. No loss of Hearing, no ringing in the ears, no dizziness. No nasal drainage or congestion. No epistaxis. No sore throat. Lungs: Mild shortness of breath with minimal exertion but no cough, no sputum production. No wheezing. Cardiovascular: Positive chest tightness with fluttering and arrhythmia. no lower extremity edema. No palpitations. No paroxysmal nocturnal dyspnea. No orthopnea. No lightheadedness or dizziness. No syncopal episodes. Abdominal: No abdominal pain. No nausea, vomiting. No diarrhea. No constipation. No bloody or tarry stools.. No loss of appetite. Genitourinary: No dysuria, increased frequency, urgency. No urinary retention. Musculoskeletal: No myalgias. No muscle weakness, no gait dysfunction, no frequent falls. No back pain. No neck pain. Integumentary: No wounds, no lesions. No rash or pruritus. No unusual bruising. No change in hair or nails. Neurologic: No aphasia. No facial droop. No change in mentation. No head injury. No headache. No paralysis. No paresthesia. Psychiatric: No depression. No anxiety. No mood swings. Endocrine: No abnormal blood sugars. No weight change. No excessive sweating or thirst. No cold intolerance. PHYSICAL EXAMINATION Gen: This is well-developed does not been in respiratory distress. HEENT: Head is atraumatic, normocephalic. Pupils equal, round. Sclerae is anicteric. NECK: Supple. No JVD. No lymphadenopathy. No thyromegaly. LUNGS: Clear to auscultation. No wheezes or rhonchi. No intercostal retractions. HEART: Irregular rate and rhythm. S1, S2 no S3 with positive systolic murmur in the apex. ABDOMEN: Soft. Bowel sounds are present. No masses. No tenderness. EXTREMITIES: No pedal edema. No calf tenderness. NEUROLOGICAL: Patient is awake, alert and oriented x3. Cranial nerves 2 through 12 are grossly intact. ASSESSMENT AND PLAN 1. Significant dyspnea and shortness of breath: Candidate for a flutter and arrhythmia, much better today with pulse rates under control. 2 a flutter: Continue onset of his pulse rates under control today, patient was taking off Cardizem and beta fausto. Anticoagulation was started yesterday will continue Xarelto 20 mg daily. Patient be discharged home today to follow- up with cardiology and come back for transesophageal echocardiogram and cardioversion probably in 3 weeks. 3 valvular heart disease: Mitral regurgitation, still very mild continue medical management. 4 hypertension: Blood pressure still not well-controlled with titrate losartan up to 100 mg a day and keep patient on doxazosin 4 mg daily. 5 ?? Hypothyroidism: TSH and free T4 was requested with lap. 6 BPH: Has been on alpha fausto with Alhaji as a seen for milligrams a day. 7 GI prophylaxis: Patient be on Pepcid. 8 DVT prophylaxis: Patient will be on anticoagulation. CODE STATUS: Full code. Planning: Patient is doing well will be discharged home today. Hospital course: Patient was started on Cardizem drip initially his pulse rate and up coming down continue to be an active flutter pulse rates well controlled, was seen cardiology echocardiogram shows mild mitral regurgitation otherwise all testing are negative including his thyroid. Patient blood pressure was moderately elevated initially started on losartan 50 mg a day was supposed to be titrated up to 100 mg daily cardiology felt to do this on a gradual basis be better so will be seen cardiology sometime in a week or so and adjust medication accordingly. The plan at this point is to have patient going home to see cardiology as an outpatient and plan to do transesophageal echocardiogram in 3 weeks and cardioversion at that time. Time spent on discharging patient: 31 minutes. Plan - Discharge Summary Discharge Rx Participant: No New Discharge Prescriptions: New Losartan [Cozaar] 50 mg PO DAILY 30 Days #30 tab Rivaroxaban [Xarelto] 20 mg PO DAILY 30 Days #30 tab Continue Doxazosin [Cardura] 4 mg PO HS Discharge Medication List Doxazosin [Cardura] 4 mg PO HS 02/20/19 [History] Rivaroxaban [Xarelto] 20 mg PO DAILY 30 Days #30 tab 10/14/21 [Rx] Losartan [Cozaar] 50 mg PO DAILY 30 Days #30 tab 10/15/21 [Rx] Follow up Appointment(s)/Referral(s): Andrew Rubin MD [Primary Care Provider] - 1-2 days Carlos Willard MD [STAFF PHYSICIAN] - 2 Weeks Patient Instructions/Handouts: Atrial Flutter (DC) Activity/Diet/Wound Care/Special Instructions: pts copay for xarelto is $335 due to a $295 deductible. pts 30 day copay for xarelto will be $40 once met. free coupon applied to first 30 days Discharge Disposition: HOME SELF-CARE
[2021-10-15] MEDS ORDERED: LOSARTAN 50 MG TAB PO STA (12:11)
== END 2021-10-15 14:10 | disposition home or self-care (01) | DRG 310 ==
LOC: EC 16:12 → 3SCARD 19:51
PROVIDERS: ADMIT Internal Medicine Geriatric Medicine; ATTEND Internal Medicine Geriatric Medicine
DX: I48.3 Typical atrial flutter (principal); I10 Essential (primary) hypertension; I08.1 Rheumatic disorders of both mitral and tricuspid valves; I16.0 Hypertensive urgency; R06.00 Dyspnea, unspecified; E03.9 Hypothyroidism, unspecified; N40.0 Benign prostatic hyperplasia without lower urinary tract symptoms; I25.2 Old myocardial infarction; Z79.890 Hormone replacement therapy; Z85.828 Personal history of other malignant neoplasm of skin; Z82.0 Family history of epilepsy and other diseases of the nervous system; Z79.899 Other long term (current) drug therapy; Z79.01 Long term (current) use of anticoagulants; Z88.3 Allergy status to other anti-infective agents; Z87.19 Personal history of other diseases of the digestive system; Z98.42 Cataract extraction status, left eye; Z98.41 Cataract extraction status, right eye; Z85.46 Personal history of malignant neoplasm of prostate
CPT/HCPCS: 36415; 71046; 71275; 80053; 80061; 83735; 83880; 84443; 84484; 85025; 85379; 85610; 85730; 93005; 93306; 96365; 96366; 96375; 99291

== ENCOUNTER → 2021-11-03 | Day surgery (SDC) | payer MEDICARE ==
[2021-10-29 14:26] VITALS: BMI 30.5
[~2021-11-03] MED LIST changes: +BENZOCAINE SPRAY 1 CAN TOPICAL ONE; -HEPARIN SODIUM,PORCINE 5,000 UNIT/ML 1 ML VIAL SQ ONE; +MIDAZOLAM 2 MG/2 ML VIAL IV ONE; -Pre Op ABX Message 1 EACH MISC MISCELLANE ONE; +SODIUM CHLORIDE 0.9% 500 ML 500 ML IV ONE; +fentaNYL (PF) 50 MCG/ML 2 ML AMP IV ONE; +fentaNYL (PF) 50 MCG/ML 2 ML AMP ONE
[2021-11-03 07:49] VITALS: TEMP 97.6
[2021-11-03 08:51] VITALS: RESP 16
[2021-11-03 09:36] VITALS: BP 155/90; PULSE 58
--- NOTE | 2021-11-04 12:44 | ECHOT ---
TRANSESOPHAGEAL ECHOCARDIOGRAM INDICATION: Abnormal 2D echo showing an enlarged right side. PROCEDURE NOTE: After obtaining informed consent, transesophageal echocardiogram is performed in left lateral position using an Omniplane probe. Local and IV sedation were obtained with Xylocaine spray, Versed and fentanyl. The patient tolerated the procedure well without any obvious immediate complications. Conscious total sedation time was 10 minutes. We performed 2D, color Doppler and spectral analysis. FINDINGS: 1. Right atrium and right ventricle seen within normal limits. 2. Interatrial septum: There is no evidence of [id number] shunt by color-flow Doppler or [id number] shunt by agitated saline contrast study. 3. Tricuspid valve shows mild tricuspid regurgitation. 4. Mitral valve appears anatomically normal. There is mild central mitral regurgitation noted. 5. Aortic valve is a 3-leaflet valve. There is no evidence of aortic stenosis or regurgitation. Aortic root measures within normal limits. There is asymmetrical septal hypertrophy noted. CONCLUSIONS: Normal LV systolic function, asymmetrical septal hypertrophy, mild mitral regurgitation and no evidence of shunting across the interatrial septum. MMODL / IJN: [id number] /
== END ==
LOC: CATHCVL 07:08
PROVIDERS: ATTEND Internal Medicine Cardiovascular Disease
DX: I08.1 Rheumatic disorders of both mitral and tricuspid valves (principal); I48.3 Typical atrial flutter; N40.0 Benign prostatic hyperplasia without lower urinary tract symptoms; I10 Essential (primary) hypertension; Z98.890 Other specified postprocedural states; Z79.01 Long term (current) use of anticoagulants; Z79.899 Other long term (current) drug therapy
CPT/HCPCS: 93312; 93320; 93325; J2250; J3010